=== PATIENT | female | born 1975 | race Caucasian/White ===

== ENCOUNTER 2017-10-01 13:01 | Outpatient (RCR) | payer OTHER, SELFPAY | END 2017-10-08 23:59 | LOC: NS 13:01 | PROVIDERS: Family Provider Family Medicine; PCP Family Medicine; Visit Provider Family Medicine | DX: E66.9 Obesity, unspecified (principal); Z68.32 Body mass index [BMI] 32.0-32.9, adult; Z71.3 Dietary counseling and surveillance | CPT/HCPCS: 97802 ==

== ENCOUNTER 2017-11-06 13:00 | Outpatient (RCR) | payer OTHER, SELFPAY | END 2017-11-08 23:59 | LOC: NS 13:00 | PROVIDERS: Family Provider Family Medicine; PCP Family Medicine; Visit Provider Family Medicine | DX: E66.9 Obesity, unspecified (principal); Z68.32 Body mass index [BMI] 32.0-32.9, adult; Z71.3 Dietary counseling and surveillance | CPT/HCPCS: 97803 ==

== ENCOUNTER 2017-11-27 14:59 | Outpatient (RCR) | payer OTHER, SELFPAY | END 2017-12-08 23:59 | LOC: NS 14:59 | PROVIDERS: Family Provider Family Medicine; PCP Family Medicine; Visit Provider Family Medicine | DX: E66.9 Obesity, unspecified (principal); Z68.32 Body mass index [BMI] 32.0-32.9, adult; Z71.3 Dietary counseling and surveillance | CPT/HCPCS: 97803 ==

== ENCOUNTER 2017-12-17 17:18 | Outpatient (RCR) | payer OTHER, SELFPAY | END 2018-01-08 23:59 | LOC: NS 17:18 | PROVIDERS: Family Provider Family Medicine; PCP Family Medicine; Visit Provider Family Medicine | DX: E66.9 Obesity, unspecified (principal); Z68.32 Body mass index [BMI] 32.0-32.9, adult; Z71.3 Dietary counseling and surveillance | CPT/HCPCS: 97803 ==

== ENCOUNTER 2018-02-18 08:36 | Outpatient (RCR) | payer OTHER, SELFPAY | END 2018-03-10 23:59 | LOC: NS 08:36 | PROVIDERS: Family Provider Family Medicine; PCP Family Medicine; Visit Provider Family Medicine | DX: E66.9 Obesity, unspecified (principal); Z68.32 Body mass index [BMI] 32.0-32.9, adult; Z71.3 Dietary counseling and surveillance | CPT/HCPCS: 97803 ==

== ENCOUNTER 2018-03-11 09:13 | Outpatient (RCR) | payer OTHER, SELFPAY | END 2018-04-10 23:59 | LOC: NS 09:13 | PROVIDERS: Family Provider Family Medicine; PCP Family Medicine; Referring Provider Family Medicine; Visit Provider Family Medicine | DX: E66.9 Obesity, unspecified (principal); Z68.32 Body mass index [BMI] 32.0-32.9, adult; Z71.3 Dietary counseling and surveillance | CPT/HCPCS: 97803 ==

== ENCOUNTER → 2018-05-16 08:22 | Outpatient (CLI) | payer OTHER, SELFPAY ==
[2018-05-16 10:22] LABS: Absolute Lymphocyte Count 1.81 X10^3/ul (0.83-4.51); Absolute Neutrophil Count 4.3 X10^3/uL (2.0-7.7); Basophil# 0.04 X10^3/uL; Basophil% 0.6 % (0-1); Eosinophil# 0.04 X10^3/uL; Eosinophils% 0.6 % (0-5); Hematocrit 41.4 % (37-47); Lymphocyte # 1.81 X10^3/ul (4.0); Lymphocyte % 27.2 % (19-41); Mean Corp Hgb Conc 31.4 g/gl (32-36); Mean Corpuscular Hgb 27.4 pg (27.0-32.0); Mean Corpuscular Volume 87.3 fL (81-99); Mean Platelet Vol. 10.2 fl (6.2-12.0); Monocyte# 0.49 X10^3/uL; Monocyte% 7.4 % (0-10); Neutrophil # 4.26 X10^3/uL (2.7-7.7); Platelet Count 265 K/mm3 (150-450); RBC Distribution Width CV 14.5 % (11.6-14.6); RBC Distribution Width SD 46.3 fl (35.1-43.9); Red Blood Count 4.74 M/mm3 (4.2-5.4); White Blood Count 6.7 K/mm3 (4.4-11.0)
[2018-05-16 10:23] LABS: POSITIVE COUNT NO; POSITIVE DIFFERENTIAL NO; POSITIVE MORPHOLOGY NO
[2018-05-16 10:39] LABS: Cholesterol 270 mg/dL (200); Glucose 86 mg/dL (74-106); High Density Lipoprotein 64 mg/dL; Triglycerides 174 mg/dL; Very Low Density Lipoprotein 35 mg/dL (5-40)
== END ==
PROVIDERS: Family Provider Family Medicine; PCP Family Medicine; Referring Provider Family Medicine; Visit Provider Family Medicine
DX: Z00.00 Encounter for general adult medical examination without abnormal findings (principal); E55.9 Vitamin D deficiency, unspecified
CPT/HCPCS: 36415; 80061; 82306; 82947; 85025

== ENCOUNTER 2018-07-01 12:30 | Outpatient (RCR) | payer OTHER, SELFPAY | END 2018-07-01 23:59 | disposition home or self-care (01) | LOC: NS 12:30 | PROVIDERS: Family Provider Family Medicine; PCP Family Medicine; Referring Provider Family Medicine; Visit Provider Family Medicine | DX: E66.9 Obesity, unspecified (principal); Z68.32 Body mass index [BMI] 32.0-32.9, adult; Z71.3 Dietary counseling and surveillance | CPT/HCPCS: 97803 ==

== ENCOUNTER → 2018-10-14 | Outpatient (CLI) | payer OTHER, SELFPAY ==
[2018-07-28 11:32] VITALS: BMI 32.2
== END | disposition home or self-care (01) ==
PROVIDERS: Family Provider Family Medicine; PCP Family Medicine; Referring Provider Nurse Practitioner Family; Visit Provider Nurse Practitioner Family
DX: R35.0 Frequency of micturition (principal)
CPT/HCPCS: 87086; 87088; 87186

== ENCOUNTER → 2019-05-25 10:41 | Outpatient (CLI) | payer OTHER, SELFPAY ==
[2019-05-25 12:00] VITALS: BMI 32.2
[2019-05-26 11:49] LABS: Mucous, Urine 0 SEEN /hpf (<or=2+); Red Blood Cells-Urine 0 SEEN /hpf (0-5); White Blood Cells 0 SEEN /hpf (0-5)
[2019-05-26 12:00] LABS: Color, Urine Yellow (Yellow); Glucose, Dipstick Normal (Normal); Ketone-Dipstick Negative (Negative); Leukocyte Esterase-Dipstick Negative /ul (Negative); Nitrite-Dipstick Negative (Negative); Occult Blood-Urine Negative /ul (Negative); Protein-Dipstick Negative (Negative); Specific Gravity, Urine 1.015 (1.002-1.030); Urine Bilirubin Dipstick Negative (Negative); Urine Clarity Clear (Clear); Urine Urobilinogen Normal (Normal)
[2019-05-26 12:15] LABS: Bacteria 1+ /hpf (None Seen); Squamous Epithelial Cells - UA 0-5 SEEN /hpf (5-10)
== END ==
PROVIDERS: Family Provider Family Medicine; PCP Family Medicine; Referring Provider Physician Assistant Medical; Visit Provider Physician Assistant Medical
DX: N30.01 Acute cystitis with hematuria (principal)
CPT/HCPCS: 81001; 87086; 87088; 87186

== ENCOUNTER → 2019-06-24 08:21 | Outpatient (CLI) | payer OTHER, SELFPAY ==
[2019-05-25 12:00] VITALS: BMI 32.2
[2019-06-24 15:57] LABS: ALB/GLOB Ratio 0.9 RATIO (0.9-2.4); AST(SGOT) 9 U/L (15-37); Alanine Aminotransfer ALT/SGPT 22 U/L (13-56); Albumin, Serum 3.6 g/dL (3.2-5.0); Alkaline Phosphatase 45 U/L (45-117); Anion Gap 5 (5-15); BUN 17 mg/dL (7-18); BUN/Creat Ratio 16.5 RATIO (10-20); Calcium,Total 8.8 mg/dL (8.5-10.1); Chloride 107 mmol/L (98-107); Cholesterol 292 mg/dL (200); Creatinine, Serum 1.03 mg/dL (0.55-1.02); EST Glomerular Filtration Rate 61 mL/min (>60); Est Glom Filt Rate - Afr Amer 74 mL/min (>60); Globulin 3.9 g/dL (2.2-4.2); Glucose 89 mg/dL (74-106); High Density Lipoprotein 64 mg/dL; Potassium 4.5 mmol/L (3.5-5.1); Protein, Total 7.5 g/dL (6.4-8.2); Sodium Level 137 mmol/L (136-145); Thyroid Stim Hormone (TSH) 2.44 uIU/mL (0.358-3.74); Triglycerides 187 mg/dL; Very Low Density Lipoprotein 37 mg/dL (5-40)
[2019-06-24 16:02] LABS: Vitamin D,25 Hydroxy 22.9 ng/mL (29.95-100.01)
== END ==
PROVIDERS: Family Provider Family Medicine; PCP Family Medicine; Referring Provider Family Medicine; Visit Provider Family Medicine
DX: Z00.00 Encounter for general adult medical examination without abnormal findings (principal); E78.00 Pure hypercholesterolemia, unspecified
CPT/HCPCS: 36415; 80053; 80061; 82306; 84443

== ENCOUNTER 2019-08-08 07:54 | Day surgery (SDC) | payer OTHER, SELFPAY ==
[2019-07-10 10:21] VITALS: BMI 32.2
--- NOTE | 2019-07-10 10:49 | HP_ITS ---
Intake Vital Signs 07/10/19 Height 5 ft 5.25 in 07/10/19 Weight: 195 lb 3 oz 07/10/19 BMI 32.2 07/10/19 BP 158/97 H 07/10/19 Blood Pressure Location Rt brachial 07/10/19 Position Sitting 07/10/19 Respiration 18 07/10/19 Pulse 79 07/10/19 Pulse Oximetry (%) 100 Intake Visit Reasons: Hemorrhoids Chief Complaint: rectal pain/ abd pain Slot Shift Supervisor Required: No Is patient in pain?: No Allergies No Known Allergies Allergy (Verified 07/10/19 10:20) Medications acetaminophen 500 mg tablet 500 mg PO Q6H PRN 07/28/18 [History Confirmed 07/10/19] cholecalciferol (vitamin D3) 1,250 mcg (50,000 unit) capsule 1,250 mcg PO DAILY 07/10/19 [History Confirmed 07/10/19] fluticasone propionate 50 mcg/actuation nasal spray,suspension 1 spray INTRANASAL DAILY PRN 07/10/19 [History Confirmed 07/10/19] lactobacillus combination no.8 3 billion cell capsule 3,000 mmu cells PO DAILY 07/10/19 [History Confirmed 07/10/19] psyllium husk 0.4 gram capsule 0.4 g PO DAILY 07/10/19 [History Confirmed 07/10/19] Is last menstrual period known: No Post menopausal: No Patient : No PFSH Medical History (Updated 07/10/19 @ 10:46 by Winston Howe MD) Gastroesophageal reflux disease (Acute) Thrombosed external hemorrhoid (Acute) Change in bowel habit (Acute) GERD (gastroesophageal reflux disease) (Acute) Hemorrhoids (Acute) History of DVT (deep vein thrombosis) (Acute) Surgical History (Updated 07/10/19 @ 10:19 by Gaby Peguero) History of delivery (Acute) History of facial surgery (Acute) History of hernia repair (Acute) History of hernia repair (Acute) Personal history of prior ablation treatment (Acute) Family History (Updated 07/10/19 @ 10:19 by Gaby Peguero) Father Cancer multiple myeloma Mother Cancer sarcoma Social History (Updated 07/10/19 @ 10:49 by Winston Howe MD) Smoking Status: Never smoker alcohol intake: current HPI HPI HPI: JENNIFER FINE, is a 44 F who presents to the office today for HPI HPI Surgical H&P: Yes HPI: JENNIFER FINE, is a 44 F who presents to the office today for discussion regarding sudden acceleration of reflux symptoms and some nonspecific left mid lower quadrant abdominal pain and change of bowel habits with progressive constipation and anal pain possible recurrent thrombosed hemorrhoids. The patient states that I have assisted her with incising and draining thrombosed external hemorrhoids 3 previous times and she has had another one drained by AMOS Lee. Recently she has had a had extreme amount of stress in her life. She lost her mother. She has had 2 previous urinary tract infections over the past 1 year. She states that she is usually asymptomatic except for some back pain. She does not think that her left mid abdominal pain is that. She states that couple months back she ate some berries and had some left mid abdominal pain. She was instructed by family members that that might be diverticulitis. ROS General General: No weight change, appetite, fatigue, colon cancer, breast cancer or weakness HEENT HEENT: No difficulty swallowing, eye injury, eye surgery, swollen glands or hoarseness Endo Endocrine: No thyroid disease, diabetes mellitus, thyroid cancer, Hair loss, heat intolerance or cold intolerance Cardio Cardiovascular: No murmur, pacemaker, heart disease, atrial fibrillation, high blood pressure, heart attack, heart stent, palpitations, shortness of breat with exertion or chest pain Resp Respiratory: No shortness of breath, No sleep apnea, No cough, No COPD, No asthma, No emphysema, No wheezing Gastro Gastrointestinal: No abdominal pain, No nausea or vomiting, No diarrhea, Yes constipation, No blood in stool, Yes acid reflux, Yes hemorrhoids, No ulcers, No gallbladder problem, No black,tarry stools Joe Hematologic: No blood thinners, No blood disorders, No bleeding, No anemia, Yes blood clots Additional Details: DVT during Neuro Neurologic: No weakness Exam Const General: cooperative, comfortable, no acute distress Nutritional Appearance: obese Orientation: alert, awake [facility] Head: normal to inspection Chest Chest palpation & inspection: normal inspection of the chest Resp Effort & Inspection: normal respiratory effort Auscultation: clear to auscultation bilaterally Cardio Rate: regular rate Rhythm: regular rhythm Heart Sounds: no murmurs GI Palpation: soft, no hepatosplenomegaly Auscultation: normal bowel sounds Other: Mild tenderness to palpation left mid abdomen without mass. No rebound or guarding. Perianal exam suggested an anterior anal hemorrhoidal tag. Very small thrombosed external hemorrhoid on the left. Skin General: no rashes or lesions noted Neuro Cognition: normal cognition Extrem General: no calf tenderness bilaterally Psych Affect: normal affect Assessment & Plan Problems 1. Change in bowel habit R19.4 2. Thrombosed external hemorrhoid K64.5 3. Gastroesophageal reflux disease, esophagitis presence not specified K21.9 Plan 44-year-old female. Recent says she has had an excessive amount of stress in her life after losing her mother. She has had acutely escalated GERD symptoms. She has had an acute change of bowel habits with progressive constipation. She has perianal pain and a very small thrombosed external hemorrhoid on the left not sure that this completely correlates with her concerns as she states that the discomfort is more internally. There is a family history of polyps in her mother. She was getting colonoscopies every 5 years. There is no family history of colon cancer. Finally the patient has had new onset of left mid abdominal pain of undetermined etiology. With a combination of this presentation I am recommending a esophagogastroduodenoscopy with possible biopsy and colonoscopy with possible biopsy or polypectomy as indicated. She is aware of the technique, benefit, risk of alternatives. She will be on vacation in the near future. We will schedule and expedite on her return. In the interim we have strongly advised taking a daily fiber supplementation and increasing her fluid intake. On the examination I will be inspecting for etiology to increase reflux possible H. pylori. We will carefully looking at the perianal exam for internal hemorrhoidal disease or fissure. We will be evaluating for source of left mid abdominal pain. Biopsies will be taken if indicated. She has had an opportunity to ask and have questions answered. We will schedule and proceed at her discretion. Cc: Dr Pancho Howe M.D., F.A.C.S. Coding Level of Care Code Off vis,new,level 3 Diagnoses Change in bowel habit R19.4 Thrombosed external hemorrhoid K64.5 Gastroesophageal reflux disease, esophagitis presence not specified K21.9 ??Esophagitis presence: esophagitis presence not specified 07/10/19 1049 <Electronically signed by Winston larios MD> Date _ Winston Howe MD I have re-examined the patient. There are no clinical changes since date of exam.
[2019-08-04 17:34] VITALS: BMI 32.2
[2019-08-08 08:18] VITALS: BP 135/82; PULSE 74; RESP 15; TEMP 36.5; O2SAT 96; BMI 33.7
[2019-08-08 08:19] LABS: Internal QC Validated? YES +Cl - CLEAR BKGD; Pregnancy, Urine Negative Negative
[2019-08-08] MEDS: Lactated Ringers 1,000 ML 100 ML IV (08:26)
--- NOTE | 2019-08-08 09:00 | IMM_PTH ---
PATIENT: JENNIFER FINE LOC: EN U#:[id number] AGE/SX: 44/F ROOM: RE08/08/[address]: Dr. Winston Howe MD : 1975 BED: DIS: 08/08/2019 SPEC #: [id number] RECD: 08/08/19 12:55 STATUS: LIZBETH CINDI #: [id number] SHANNON: 08/08/19 09:[address]: Winston Howe DEPT: IMMUNOHISTOCHEMISTRY RECD BY: Coleen Mcintosh ENTERED: 08/08/19 12:55 SP TYPE: IMMUNO OTHR DR: Dr. Pancho Grover MD Tissues: B - Stomach, NOS Procedures: H Pylori (initial) PHYSICIAN & INSTITUTION [place] [address] SPECIMEN INFORMATION: Tissue Source: B - Antrum biopsy Clinical Info: GERD, thrombosed external hemorrhoid, change in bowel habit Specimen Number: [id number] CPT code: 39773 METHODOLOGY: Deparaffinized sections of prefer/formalin-fixed tissue or PAP/DQ stained slides are incubated with monoclonal/polyclonal antibodies/oligonucleotide probes. Localization is made via biotin free immunoperoxidase method. Appropriate controls are performed and reacted as expected. Results on target cell population are indicated in the following table: RESULTS: ANTIBODY / CLONE RESULT Block B H Pylori (polyclonal) negative These tests were developed and their performance characteristics determined by [facility]. They may not have been cleared or approved by the U.S. Food and Drug Administration. The FDA has determined that such clearance or approval is not necessary. INTERPRETATION: B. Antrum biopsy: Negative for Helicobacter pylori organisms. SJ:mariano 08/11/19
--- NOTE | 2019-08-08 09:00 | EGD_PTH ---
PATIENT: JENNIFER FINE LOC: EN U#:[id number] AGE/SX: 44/F ROOM: RE08/08/[address]: Dr. Winston Howe MD : 1975 BED: DIS: 08/08/2019 SPEC #: [id number] RECD: 08/08/19 11:49 STATUS: LIZBETH KHOURYYefri #: [id number] SHANNON: 08/08/19 09:[address]: Winston Howe DEPT: SURGICAL PATHOLOGY RECD BY: Fritz Hill ENTERED: 08/08/19 12:19 SP TYPE: EGD BIOPSY OTHR DR: Dr. Pancho Grover MD Tissues: A - Duodenum, NOS B - Gastric mucous membrane C - Esophagus, NOS D - Esophagus, NOS E - COLON BIOPSY F - Descending colon Procedures: Special Stain Group II Surgery Specimen Level IV Alcian Blue/PAS (control) HEADER OPERATION: [place] [place] DIAGNOSIS: GERD, thrombosed external hemorrhoid, change in bowel habit TISSUE SUBMITTED: A - Duodenum biopsy, B - Antrum biopsy for H. pylori and path, C - Distal esophagus biopsy, D - Mid esophagus biopsy, E - Random colon biopsies, F - Biopsy of descending colon polyp MICROSCOPIC DIAGNOSIS A. Duodenum, biopsy: A fragment of small intestinal mucosa, no pathologic diagnosis. B. Antrum, biopsy: Mild gastritis. See microscopic description and comment. C. Distal esophagus, biopsy: A fragment of gastroesophageal mucosa with mild chronic inflammation. Intestinal metaplasia (goblet cell metaplasia) is not identified. See comment. D. Mid esophagus, biopsy: A fragment of squamous epithelium, no pathologic diagnosis. E. Colon, random biopsy: Fragments of colonic mucosa, no pathologic diagnosis. F. Descending colon polyp, biopsy: Hyperplastic polyp. SJ:mariano 08/11/19 COMMENT B. The results of immunohistochemistry for Helicobacter pylori will be reported separately ([id number]). MICROSCOPIC DESCRIPTION Slides are reviewed. B. The specimen shows fragments of gastric mucosa with chronic inflammatory cell infiltrates in the lamina propria consisting of lymphocytes and plasma cells, consistent with mild chronic gastritis. C. Alcian blue/PAS stain with matched control is used in the evaluation of the specimen. The specimen predominantly consists of squamous epithelium. GROSS DESCRIPTION A - Received in fixative is one container labeled with the patient's name and designated duodenal biopsy. The specimen consists of one irregular fragment of light thomas soft tissue that measures 0.4 x 0.4 x 0.1 cm. The specimen is totally submitted in one cassette. B - Received in fixative is one container labeled with the patient's name and designated antrum biopsy. The specimen consists of one irregular fragment of light thomas soft tissue that measures 0.3 x 0.3 x 0.1 cm. The specimen is totally submitted in one cassette. C - Received in fixative is one container labeled with the patient's name and designated distal esophagus biopsy. The specimen consists of one minute fragment of light thomas soft tissue that measures 0.2 x 0.1 x <0.1 cm. The specimen is totally submitted in one cassette. D - Received in fixative is one container labeled with the patient's name and designated mid esophagus biopsy. The specimen consists of one irregular fragment of light thomas soft tissue that measures 0.5 x 0.2 x 0.1 cm. The specimen is totally submitted in one cassette. E - Received in fixative is one container labeled with the patient's name and designated random colon biopsy. The specimen consists of multiple irregular fragments of light thomas soft tissue that in aggregate measure 2 x 0.5 x 0.1 cm. The specimen is totally submitted in one cassette. F - Received in fixative is one container labeled with the patient's name and designated descending colon polyp. The specimen consists of one irregular fragment of light thomas soft tissue that measures 0.3 x 0.2 x 0.1 cm. The specimen is totally submitted in one cassette. / SJ:rg 08/08/19 TC:3 CPT: 91411 x6, 25700
[2019-08-08 09:50] VITALS: BP 110/59; BP 135/82; PULSE 82; RESP 16; TEMP 36.7; O2SAT 97
--- NOTE | 2019-08-08 09:52 | OP.EGD_ITS ---
Patient Name: Gio George Procedure Date: 08/08/2019 9:14 AM Date of : 1975 Age: 44 Procedure: Upper GI endoscopy Indications: Heartburn Providers: Winston Howe MD Referring MD: Pancho Grover Medicines: See the Anesthesia note for documentation of the administered medications Complications: No immediate complications. Procedure: Pre-Anesthesia Assessment: - Prior to the procedure, a History and Physical was performed, and patient medications and allergies were reviewed. The patient's tolerance of previous anesthesia was also reviewed. The risks and benefits of the procedure and the sedation options and risks were discussed with the patient. All questions were answered, and informed consent was obtained. Prior Anticoagulants: The patient has taken no previous anticoagulant or antiplatelet agents. ASA Grade Assessment: II - A patient with mild systemic disease. After reviewing the risks and benefits, the patient was deemed in satisfactory condition to undergo the procedure. After obtaining informed consent, the endoscope was passed under direct vision. Throughout the procedure, the patient's blood pressure, pulse, and oxygen saturations were monitored continuously. The gastroscope was introduced through the mouth, and advanced to the second part of duodenum. The upper GI endoscopy was accomplished without difficulty. The patient tolerated the procedure well. Scope In: 9:20:51 AM Scope Out: 9:25:52 AM Total Procedure Duration Time 0 hours 5 minutes 1 second Findings: The Z-line was variable and was found 38 cm from the incisors. Biopsies were taken with a cold forceps for histology. The mid esophagus was normal. Biopsies were taken with a cold forceps for histology. Diffuse mildly erythematous mucosa without bleeding was found in the gastric antrum. Biopsies were taken with a cold forceps for histology. The examined duodenum was normal. Biopsies were taken with a cold forceps for histology. Impression: - Z-line variable, 38 cm from the incisors. Possible mild esophagitis. Biopsied. - Normal mid esophagus. Biopsied. Very small hiatal hernia - Erythematous mucosa in the antrum. Biopsied. - Normal examined duodenum. Biopsied. Recommendation: - Discharge patient to home. - Resume previous diet. - Continue present medications. - Telephone my office for pathology results in 1 week. Clinical findings above quite mild Procedure Code(s): --- Professional --- 72123, Esophagogastroduodenoscopy, flexible, transoral; with biopsy, single or multiple Diagnosis Code(s): --- Professional --- K22.8, Other specified diseases of esophagus K31.89, Other diseases of stomach and duodenum R12, Heartburn CPT copyright 2017 [employer]. All rights reserved. The codes documented in this report are preliminary and upon concrete block plant supervisor review may be revised to meet current compliance requirements. Winston Howe MD 08/08/2019 9:52:04 AM This report has been signed electronically. Number of Addenda: 0 Note Initiated On: 08/08/2019 9:14 AM
--- NOTE | 2019-08-08 09:52 | OP.CCLET_ITS ---
08/08/2019 Pancho Grover [address] [place] [address] Re : Upper GI endoscopy procedure for Gio George Dear Dr. Grover This procedure was performed on Thursday, August 08, 2019. My impressions and recommendations are as follows: Impressions : - Z-line variable, 38 cm from the incisors. Possible mild esophagitis. Biopsied. - Normal mid esophagus. Biopsied. Very small hiatal hernia - Erythematous mucosa in the antrum. Biopsied. - Normal examined duodenum. Biopsied. Recommendations : - Discharge patient to home. - Resume previous diet. - Continue present medications. - Telephone my office for pathology results in 1 week. Clinical findings above quite mild My findings are described in the full procedure note, which is enclosed. If I can be of further assistance, please feel free to contact me at Doctor phone number(s): Work: . Sincerely, Winston Howe MD 08/08/2019 9:52:04 AM This report has been signed electronically.
[2019-08-08 09:55] VITALS: BP 111/79; BP 135/82; PULSE 81; RESP 16; O2SAT 94
--- NOTE | 2019-08-08 09:55 | OP.CCLET_ITS ---
08/08/2019 Pancho Grover [address] [place] [address] Re : Colonoscopy procedure for Gio George Dear Dr. Grover This procedure was performed on Thursday, August 08, 2019. My impressions and recommendations are as follows: Impressions : - One 4 mm polyp in the descending colon, removed with a cold biopsy forceps. Resected and retrieved. - Diverticulosis in the entire examined colon. Biopsied. - Tortuous colon. Recommendations : - Discharge patient to home. - Resume previous diet. - Continue present medications. - Repeat colonoscopy in 5 years for surveillance based on pathology results. - Telephone my office for pathology results in 1 week. My findings are described in the full procedure note, which is enclosed. If I can be of further assistance, please feel free to contact me at Doctor phone number(s): Work: . Sincerely, Winston Howe MD 08/08/2019 9:55:15 AM This report has been signed electronically.
--- NOTE | 2019-08-08 09:55 | OP.COLON_ITS ---
Patient Name: Gio George Procedure Date: 08/08/2019 9:27 AM Date of : 1975 Age: 44 Procedure: Colonoscopy Indications: Family history of colonic polyps in a first-degree relative Providers: Winston Howe MD Referring MD: Pancho Grover Medicines: See the Anesthesia note for documentation of the administered medications Patient Profile: Last Colonoscopy: 5 years ago. Complications: No immediate complications. Procedure: Pre-Anesthesia Assessment: - Prior to the procedure, a History and Physical was performed, and patient medications and allergies were reviewed. The patient's tolerance of previous anesthesia was also reviewed. The risks and benefits of the procedure and the sedation options and risks were discussed with the patient. All questions were answered, and informed consent was obtained. Prior Anticoagulants: The patient has taken no previous anticoagulant or antiplatelet agents. ASA Grade Assessment: II - A patient with mild systemic disease. After reviewing the risks and benefits, the patient was deemed in satisfactory condition to undergo the procedure. After I obtained informed consent, the scope was passed under direct vision. Throughout the procedure, the patient's blood pressure, pulse, and oxygen saturations were monitored continuously. The colonoscope was introduced through the anus and advanced to the cecum, identified by appendiceal orifice and ileocecal valve. The colonoscopy was performed without difficulty. The patient tolerated the procedure well. The quality of the bowel preparation was good. The ileocecal valve and the appendiceal orifice were photographed. Scope In: 9:28:31 AM Scope Withdrawal Time 0 hours 9 minutes 22 seconds Scope Out: 9:46:57 AM Total Procedure Duration Time 0 hours 18 minutes 26 seconds Findings: A 4 mm polyp was found in the descending colon. The polyp was sessile. The polyp was removed with a cold biopsy forceps. Resection and retrieval were complete. Scattered diverticula were found in the entire colon. Biopsies for histology were taken with a cold forceps from the entire colon for evaluation of microscopic colitis. The colon (entire examined portion) was moderately tortuous. Advancing the scope required changing the patient to a supine position and using manual pressure. Impression: - One 4 mm polyp in the descending colon, removed with a cold biopsy forceps. Resected and retrieved. - Diverticulosis in the entire examined colon. Biopsied. - Tortuous colon. Recommendation: - Discharge patient to home. - Resume previous diet. - Continue present medications. - Repeat colonoscopy in 5 years for surveillance based on pathology results. - Telephone my office for pathology results in 1 week. Procedure Code(s): --- Professional --- 80910, Colonoscopy, flexible; with biopsy, single or multiple Diagnosis Code(s): --- Professional --- D12.4, Benign neoplasm of descending colon Z83.71, Family history of colonic polyps K57.30, Diverticulosis of large intestine without perforation or abscess without bleeding Q43.8, Other specified congenital malformations of intestine CPT copyright 2017 [employer]. All rights reserved. The codes documented in this report are preliminary and upon inventory and pricing associate review may be revised to meet current compliance requirements. Winston Howe MD 08/08/2019 9:55:15 AM This report has been signed electronically. Number of Addenda: 0 Note Initiated On: 08/08/2019 9:27 AM
[2019-08-08 10:00] VITALS: BP 116/78; BP 135/82; PULSE 71; RESP 16; O2SAT 95
[2019-08-08 10:05] VITALS: BP 109/80; BP 135/82; PULSE 73; RESP 16; TEMP 36.5; O2SAT 97
[2019-08-08 10:18] VITALS: BP 135/82
== END 2019-08-08 10:30 | disposition home or self-care (01) ==
LOC: EN 07:55 → AC 07:56
PROVIDERS: Anesthesiology; PCP Family Medicine; Referring Provider Family Medicine; Visit Provider Surgery
PROC: 0DJD8ZZ Inspection of Lower Intestinal Tract, Via Natural or Artificial Opening Endoscopic (ICD-10-PCS; CPT 45378; principal; 2019-08-08 08:55)
DX: K29.70 Gastritis, unspecified, without bleeding (principal); K21.0 Gastro-esophageal reflux disease with esophagitis; K63.5 Polyp of colon; K57.30 Diverticulosis of large intestine without perforation or abscess without bleeding; K44.9 Diaphragmatic hernia without obstruction or gangrene; K64.5 Perianal venous thrombosis; Z87.440 Personal history of urinary (tract) infections; E66.9 Obesity, unspecified; Z68.32 Body mass index [BMI] 32.0-32.9, adult; Z86.718 Personal history of other venous thrombosis and embolism
CPT/HCPCS: 43239; 45380; 81025; 88305; 88313; 88342; J7120; J2405

== ENCOUNTER 2019-12-04 11:22 | Day surgery (SDC) | payer OTHER, SELFPAY ==
--- NOTE | 2019-11-28 15:34 | PCM.HP.BLA ---
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 Pt reports still has intermittent spotting however this past month nothing. Pt reports having pain and irregular bleeding. Pt has h/o ablation and declines any hormonal intervention at this time. Pt would like to proceed with Hysteroscopy, D&C, polypectomy with symphion ? PAST MEDICAL HISTORY PAST MEDICAL HISTORY Diagnosis Date ? DVT (deep vein thrombosis) in ? ? hemorrhoid ? PAST SURGICAL HISTORY PAST SURGICAL HISTORY Procedure Laterality Date ? DELIVERY ONLY ? ? ? x 2 ? D&C, DIAG AND/OR THERAPEUTIC ? ? ? INCISE EXTERNAL HEMORRHOID ? 06/22/10 ? Anterior thrombosed hemorrhoid ? INCISE EXTERNAL HEMORRHOID ? 02/28/13 ? Right lateral thrombosed hemorrhoid excision ? NOVASURE ? 2008 ? Ablation-Dr. Dailey ? PAST SURGICAL HISTORY OF ? ? ? umbilical hernia repair ? PAST SURGICAL HISTORY OF ? ? ? femoral hernia repair ? PAST SURGICAL HISTORY OF ? ? ? mole removed from face FAMILY HISTORY FAMILY HISTORY Problem Relation Age of Onset ? Cancer Mother ? ? soft tissue sarcoma - right thigh ? Cancer Father ? ? Multiple Myeloma ? Cancer Maternal Grandmother ? ? uterine ? Heart Maternal Grandfather ? SOCIAL HISTORY Social History ? Tobacco Use ? Smoking status: Never Smoker ? Smokeless tobacco: Never Used Substance Use Topics ? Alcohol use: Yes ? ? Comment: Socially ? Drug use: No CURRENT MEDICATIONS Current Outpatient Medications Medication Sig ? omega-3/dha/epa/dpa/fish oil (OMEGA-3 2100 ORAL) Take by mouth. ? Multivitamin capsule Take 1 capsule by mouth once daily. ? fluticasone propionate (FLONASE NASAL) Use in the nose. ? psyllium seed, with dextrose, (FIBER ORAL) Take by mouth. ? enzymes,digestive (DIGESTIVE ENZYMES ORAL) Take by mouth. ? LACTOBACILLUS ACIDOPHILUS (PROBIOTIC ORAL) Take by mouth. ? LORATADINE (CLARITIN ORAL) Take by mouth as needed. ? CALCIUM CARBONATE/VITAMIN D3 (VITAMIN D-3 ORAL) Take 1 tablet by mouth once daily. ? meloxicam (MOBIC) 15 mg tablet Take 15 mg by mouth once daily. ? No current facility-administered medications for this visit. Allergies As of Date: 11/24/2019 (No Known Allergies) Fully Assessed 11/24/2019 ? REVIEW OF SYSTEMS Abdomen: some intermittent pain and cramping . Expanded ROS: GENERAL: Negative for fever Allergies and current medication updated:Yes ? EXAM: BP 134/86 Ht 5' 3.5 (1.61m) Wt 204 lb (92.5kg) LMP 09/28/2019 BMI 35.57 kg/(m^2). GENERAL: pleasant, female in no apparent distress HEENT: Normocephalic and atraumatic NECK: full range of motion DERMATOLOGY: Normal, without lesions, non-icteric and non-hirsute NEURO: alert and oriented x3,exam grossly non-focal ? ASSESSMENT AND PLAN: Encounter Diagnosis ? ? ICD-10-CM ? 1. Abnormal uterine bleeding (AUB) N93.9 ? 2. Endometrial polyp N84.0 ? 3. History of endometrial ablation Z98.890 ? 4. Pt has been counseled on risks/benefits and alternatives of surgery including but not limited to anesthesia, bleeding, infection, uterine perforation with subsequent injury to pelvic structures including bowel, bladder, ureters and vessels. Pt wishes to proceed with surgery at this time. Pt understands due to h/o ablation may have stenosis and not able to dilate- at that time surgery would no proceed. 5. Declines hormonal trial- if fails d&C, hysteroscopy consider hysterectomy. ? ? ? Kiya Ashton MD ?4:48 PM Office Visit on 11/24/2019 Procedure Criteria Procedure Type: Elective Procedure Essential: No COVID Risk Discussion: The surgeon/proceduralist and patient have discussed in detail the risk of exposure to and/or potential harm posed by the COVID-19 virus with having a surgery/procedure at this time versus the risk of delaying the surgery/procedure. It is not possible to know either the risk of delaying the surgery or procedure or chance of getting an infection with perfect accuracy, but a joint decision was made between the patient and the surgeon/proceduralist to proceed at this time with the scheduled surgery/procedure as indicated on the consent form.
[2019-12-04] VITALS (7 sets, daily range): BP systolic 116–137; BP diastolic 83–91; PULSE 16–85; RESP 16; TEMP 36.3–37.2; O2SAT 94–100; BMI 34.7
[2019-12-04 11:50] LABS: Internal QC Validated? YES +Cl - CLEAR BKGD; Pregnancy, Urine Negative Negative
[2019-12-04] MEDS: Lactated Ringers 1,000 ML 100 ML IV (11:58)
--- NOTE | 2019-12-04 13:05 | ECC_PTH ---
PATIENT: JENNIFER FINE LOC: [facility] [place] U#:[id number] AGE/SX: 44/F ROOM: RE12/04/[address]: Dr. Kiya Ashton, MDDOB: 1975 BED: DIS: 12/04/2019 SPEC #: [id number] RECD: 12/04/19 16:03 STATUS: LIZBETH CINDI #: [id number] SHANNON: 12/04/19 13:[address]: Kiya Ashton DEPT: SURGICAL PATHOLOGY RECD BY: Dell Castro ENTERED: 12/05/19 08:05 SP TYPE: ECC OTHR DR: Dr. Pancho Grover MD Tissues: Endocervical Procedures: Surgery Specimen Level IV HEADER OPERATION: Dilation and endocervical curettings PRE-OP DIAGNOSIS: Abnormal uterine bleeding, endocervical polyp TISSUE SUBMITTED: Endocervical curettings MICROSCOPIC DIAGNOSIS Endocervical curettings: Fragments of benign endocervical epithelium and benign endocervical mucosa with chronic inflammation, squamous metaplasia and mild epithelial atypia, favor reactive. Desquamated benign squamous epithelial cells, blood and mucous. See comment. ARJUN:mariano 12/08/19 COMMENT Clinical correlation and appropriate follow up are necessary. MICROSCOPIC DESCRIPTION Slides are reviewed. GROSS DESCRIPTION Received in fixative is one container labeled with the patient's name and designated endocervical curettings. The specimen consists of multiple fragments of hemorrhagic soft tissue mixed with mucoid tissue that in aggregate measure 5 x 3 x 0.6 cm. The entire specimen is submitted in four cassettes. / ARJUN:mariano 12/05/19 TC:3 CPT: 29488
--- NOTE | 2019-12-04 13:51 | DCINST_ITS ---
Discharge Diet: No Restrictions Discharge Activity: Return to Normal Activity, May Shower, May Take a Tub Bath - in 2 weeks. Call your doctor if you observe: Fever of 101 or Higher, Using more than one pad per hour, Uncontrolled pain Allergies/Adverse Reactions: Allergies No Known Allergies Allergy (Verified 12/04/19 11:39) Medications to take at Discharge acetaminophen 500 mg tablet 500 mg PO Q6H PRN 07/28/18 cholecalciferol (vitamin D3) 1,250 mcg (50,000 unit) capsule 1,250 mcg PO DAILY 07/10/19 fluticasone propionate 50 mcg/actuation nasal spray,suspension 1 spray INTRANASAL DAILY PRN 07/10/19 lactobacillus combination no.8 3 billion cell capsule 3,000 mmu cells PO DAILY 07/10/19 psyllium husk 0.4 gram capsule 0.4 g PO DAILY 07/10/19 Enzymes 1 tab PO PRN PRN 11/27/19 Meloxicam [Mobic] 15 mg PO DAILY 11/27/19 Multivitamin 1 ea PO DAILY 11/27/19 Raleigh-3 Fatty Acids/Fish Oil [[place] 3 1,000 mg Softgel] 1 ea PO DAILY 11/27/19 hydrocortisone See Rx Instructions .ROUTE .MEDSUPPLY #30 supp 12/03/19 Primary Care Physician: Pacnho Grover MD [Primary Care Provider] - Test Results: Test results from this visit will be discussed in further detail at your follow- up appointment, if applicable. Please Follow Up With: Kiya Ashton MD When: as scheduled in 2 weeks
--- NOTE | 2019-12-04 13:52 | PCM.OPRPT ---
Report of Operation Date of Procedure: 12/04/19 Pre-Operative Diagnosis: AUB,endocervical polyp, History of endometrial ablation Post-Operative Diagnosis: same, stenotic cervix Surgery/Procedure Performed:: endocervical curettings. Description of Surgical Findings:: Unable to dilate internal cervical os - endocervical curettage performed. Type of Anesthesia:: MAC Specimen's removed: enodcervical curettings Drains: none Estimated Blood Loss (mL): <5cc Fluids Replaced: 700 Description of Procedure: Informed consent was obtained the patient was taken the operating room she was placed in supine position. She was given anesthesia. She was then placed in the [facility] where she was prepped and draped in the normal sterile fashion. bladder drained- 100cc urine. At this time the weighted speculum was placed in the posterior fornix of vagina. Single-tooth tenaculum was used to gently grasp the anterior lip the cervix. attempted to peform uterine sound- unable- stenotic internal cervical os. At this time endocervical curettage performed as polyp was appreciated in endocervix- some small tissue removed and will send to pathology for review. Procedure was stopped- stenotic cervix due to previous ablation- Anticipated normal postoperative course. Instrument lap count correct ?2. Vaginal Sweep was negative. Grafts/Implants Used: none - Complications none- stenotic cervix- unable to perform hysteroscopy - Admit VTE Documentation VTE Present on Admission: Yes VTE Mechan Device Prophylaxis: SCD's VTE Pharm Prophylaxis ordered?: No
== END 2019-12-04 15:42 | disposition home or self-care (01) ==
LOC: SDC 11:23 → AC 11:24
PROVIDERS: Anesthesiology; PCP Family Medicine; Referring Provider Obstetrics & Gynecology; Visit Provider Obstetrics & Gynecology
PROC: 0UB98ZZ Excision of Uterus, Via Natural or Artificial Opening Endoscopic (ICD-10-PCS; CPT 58558; principal; 2019-12-04 12:50)
DX: N72 Inflammatory disease of cervix uteri (principal); N87.9 Dysplasia of cervix uteri, unspecified; N84.1 Polyp of cervix uteri; N88.2 Stricture and stenosis of cervix uteri; Z11.59 Encounter for screening for other viral diseases; Z86.718 Personal history of other venous thrombosis and embolism
CPT/HCPCS: 00940; 57505; 81025; 87635; 88305; G2023; J7120; J2405; U0003

== ENCOUNTER 2019-12-12 11:52 | Emergency (ER) | payer OTHER, SELFPAY ==
[2019-12-04 11:47] VITALS: BMI 34.7
[2019-12-12 11:53] VITALS: BP 157/84; PULSE 93; RESP 17; TEMP 36.5; O2SAT 97; BMI 34.7
--- NOTE | 2019-12-12 12:05 | VDLE_ITS ---
Reason For Study: Swelling RIGHT LEFT CFV is compressible, spontaneous, phasic, GSV is normal. competent and demonstrates normal CFV is compressible, spontaneous, phasic, augmentation. competent, and demonstrates normal Procedure augmentation. Exam performed portable in ED. FV is compressible, spontaneous, phasic, A preliminary report was called and/or faxed competent and demonstrates normal to ED RN. augmentation. POP V is compressible, spontaneous, phasic, competent and demonstrates normal augmentation. T/P Trunk is compressible. PTV is compressible. LT PerV is compressible. Interpretation Summary There is no evidence of left lower extremity deep vein thrombosis. Left great saphenous vein appears patent and compressible segmentally. Patent and compressible right common femoral vein Ordering Physician: Cindy Juárez Referring Physician: Pancho Grover Performed By: Whitney Lindsay RVT
--- NOTE | 2019-12-12 12:06 | EKG12_ITS ---
Test Reason : SOB Blood Pressure : / mmHG Vent. Rate : 083 BPM Atrial Rate : 083 BPM P-R Int : 122 ms QRS Dur : 100 ms QT Int : 356 ms P-R-T Axes : 069 051 078 degrees QTc Int : 418 ms Normal sinus rhythm Normal ECG Confirmed by DELMY HOLBROOK ([id number]), rewrite editor LUTHER CRAFT ([id number]) on 12/15/2019 2:14:43 PM Referred By: MICHAEL Confirmed By:DELMY HOLBROOK
--- NOTE | 2019-12-12 12:07 | ED.DCSUM_ITS ---
History of Present Illness Chief Complaint: Lower Extremity Injury Detail of Chief Complaint: Left leg pain and swelling Informant: Patient Onset: Days Context: Gradual Onset Current Severity: Mild Maximum Severity: Mild Narrative: Patient presents secondary to left leg pain and swelling. She is a history of DVT while she was . 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 3 days ago she started noticing some swelling to her left leg. Today she had more pain along the lateral left lower leg. No overlying skin changes. No known injury. She denies chest pain but has noted increased shortness of breath for the past 2 days. - Past Medical History (1) GERD (gastroesophageal reflux disease) Status: Chronic (2) History of DVT (deep vein thrombosis) Status: Resolved Past Medical History - Allergies and Home Meds Allergies/Adverse Reactions: Allergies No Known Allergies Allergy (Verified 12/12/19 11:53) Primary Care Physician: Pancho Grover MD [Primary Care Provider] - Prior records reviewed: Yes Lives: Spouse/ Significant Other Smoking Status: Never smoker Review of Systems General: Denies: Chills, Fever Eyes: Denies: Visual changes - bilaterally ENT: Denies: Bilateral ear pain Cardiovascular: Denies: Chest pain Respiratory: Reports: Dyspnea. Denies: Cough Gastrointestinal: Denies: Abdominal pain, Nausea, Vomiting Musculoskeletal: Reports: Swelling, Extremity Pain Skin: Denies: Rash Neurological: Denies: Headache Hematologic: Denies: Easy bruising, Easy bleeding Allergy: Denies: Uticaria Physical Exam Vital Signs/Narrative: Vital Signs Temp Pulse Resp BP Pulse Ox 12/12/19 11:53 97.7 F L 93 17 157/84 H 97 Inital Vital Signs reviewed: Yes General: Well nourished, Well developed Head: Normocephalic ENT: Moist mucous membranes Neck: Supple Cardiovascular: Regular rate, Regular rhythm Respiratory: No distress, CTA bilaterally Abdomen: Soft, Nontender Extremities: - - Minimal edema to the left lower extremity. Mild tenderness along the lateral left lower leg. No palpable cords. Strong distal pulses. Neurological: Alert, Oriented x3, Normal Strength, Normal Sensation Psychological: Normal affect Diagnostic/Tx/Re-eval Impressions Chest X-Ray 12/12/19 12:25 IMPRESSION: Normal x-ray examination of the chest. Electronically Signed: Demarcus Watson MD at 12:58 EDT , Service support , 12/12/19 12:25 Chest 1 View (Portable) [RAD] Stat Laboratory Results 12/12/19 12/12/19 12/12/19 12:15 12:15 12:15 WBC 10.3 RBC 4.65 Hgb 13.1 Hct 41.1 MCV 88.4 MCH 28.2 MCHC 31.9 L RDW Std Deviation 48.6 H RDW Coeff of Emani 15.1 H Plt Count 328 MPV 9.6 Immature Gran % (Auto) 1.200 H Neut % (Auto) 65.4 Lymph % (Auto) 23.1 [place] % (Auto) 9.1 Eos % (Auto) 0.5 Baso % (Auto) 0.7 Absolute Neuts (auto) 6.8 Absolute Lymphs (auto) 2.39 Nucleated RBC % 0 D-Dimer Quant (PE/DVT) 0.32 Sodium 139 Potassium 4.1 Chloride 108 H Carbon Dioxide 27.0 Anion Gap 4 L BUN 19 H Creatinine 0.86 Estim Creat Clear Calc 73.55 Est GFR (MDRD) Af Amer 91 Est GFR (MDRD) Non-Af 75 BUN/Creatinine Ratio 22.1 H Glucose 88 Calcium 8.7 Troponin I < 0.015 - EKG Initial EKG Interpretation: Sinus Rhythm - Sinus 83 with no acute ischemia. - Medical Decision Making Venous ultrasound of the legs reveal no evidence of clot. Blood work is unremarkable. On repeat evaluation patient is resting comfortably. She was advised to continue to use her compression stockings and elevate her legs. She will check her blood pressure once a day and keep track of that as well. She is given return instructions. ED Disposition - Plan for ED Patient: Disposition: Home or Assisted Living Diagnosis: Edema Instructions: ED Peripheral Edema, Unilateral Referrals: Pancho Grover MD [Primary Care Provider] - 1 Week if not improving
--- NOTE | 2019-12-12 12:15 | NURSING ---
NO OLD EKGS
--- NOTE | 2019-12-12 12:25 | RAD_ITS ---
STUDY: X-RAY CHEST REASON FOR EXAM: Female, 44 years old. SOB AND LEFT LOWER LEG EDEMA AND PAIN. HX OF A BLOOD CLOT IN LEG BEFORE PER PATIENT. TECHNIQUE: Single AP portable view of the chest. COMPARISON: None. FINDINGS: There are monitoring devices. The lungs are clear and expanded. There is no demonstrated pleural abnormality. Normal size heart. Normal mediastinum and harris. Normal visualized pulmonary arteries. Normal visualized aortic arch and descending thoracic aorta. Normal visualized thoracic spine. Normal visualized ribs, clavicles, and shoulders. There is no demonstrated abnormality of the visualized soft tissue structures of the upper abdomen. RAD/Chest 1 View (Portable) IMPRESSION: Normal x-ray examination of the chest. Electronically Signed: Demarcus Watson MD at 12:58 EDT , Service support ,
[2019-12-12 12:30] VITALS: BP 140/82; PULSE 84; RESP 18; O2SAT 98
[2019-12-12 12:31] LABS: Absolute Lymphocyte Count 2.39 X10^3/uL (0.83-4.51); Absolute Neutrophil Count 6.8 X10^3/uL (2.0-7.7); Basophil# 0.07 X10^3/uL; Basophil% 0.7 % (0-1); Eosinophil# 0.05 X10^3/uL; Eosinophils% 0.5 % (0-5); Hematocrit 41.1 % (37-47); Hemoglobin 13.1 g/dL (12.0-15.0); Lymphocyte # 2.39 X10^3/ul (4.0); Lymphocyte % 23.1 % (19-41); Mean Corp Hgb Conc 31.9 g/dL (32-36); Mean Corpuscular Hgb 28.2 pg (27.0-32.0); Mean Corpuscular Volume 88.4 fL (81-99); Mean Platelet Vol. 9.6 fl (6.2-12.0); Monocyte# 0.94 X10^3/uL; Monocyte% 9.1 % (0-10); NRBC Flagged by Analyzer 0 % (0-5); Neutrophil # 6.77 X10^3/uL (2.7-7.7); Neutrophil % 65.4 % (47-70); Platelet Count 328 K/mm3 (150-450); RBC Distribution Width CV 15.1 % (11.6-14.6); RBC Distribution Width SD 48.6 fl (35.1-43.9); Red Blood Count 4.65 M/mm3 (4.2-5.4); White Blood Count 10.3 K/mm3 (4.4-11.0)
[2019-12-12 12:36] LABS: D-Dimer Quantitative (DVT/PE) 0.32 FEU/ug/m (0.27-0.49)
[2019-12-12 12:44] LABS: Anion Gap 4 (5-15); BUN 19 mg/dL (7-18); BUN/Creat Ratio 22.1 RATIO (10-20); Calcium,Total 8.7 mg/dL (8.5-10.1); Chloride 108 mmol/L (98-107); Creatinine, Serum 0.86 mg/dL (0.55-1.02); EST Glomerular Filtration Rate 75 mL/min (>60); Est Glom Filt Rate - Afr Amer 91 mL/min (>60); Estimated Creatinine Clearance 73.55 ml/min; Glucose 88 mg/dL (74-106); Potassium 4.1 mmol/L (3.5-5.1); Sodium Level 139 mmol/L (136-145)
[2019-12-12 14:23] VITALS: BP 147/99; PULSE 71; RESP 17; O2SAT 97
== END 2019-12-12 14:26 | disposition home or self-care (01) ==
PROVIDERS: Emergency Provider Emergency Medicine; PCP Family Medicine
DX: R60.0 Localized edema (principal); K21.9 Gastro-esophageal reflux disease without esophagitis; Z86.718 Personal history of other venous thrombosis and embolism; Z79.899 Other long term (current) drug therapy
CPT/HCPCS: 71045; 80048; 84484; 85025; 85379; 93005; 93971; 99284

== ENCOUNTER 2019-12-15 13:00 | Outpatient (RCR) | payer OTHER, SELFPAY ==
--- NOTE | 2019-11-12 16:18 | HP.PTEVAL ---
Patient's Visit Information JENNIFER FINE is a 44 year old F referred to Physical Therapy by Conor Boss PA-C with a diagnosis of IMPINGEMENT SYDROME OF LEFT SHOULDER,PAIN IN LEFT SHOULDER. Date of Evaluation: 11/12/19 Physical Therapist: Sudhri Anand, PT, Cert MDT, OCS - Visit Plan Frequency: 2x /Week Duration: 4 Weeks Plan: PT INTERVENTIONS RTC/SCAPULAR STRENGTHENING,POSTURAL EX'S,MANAUL THERAPY G-H MOBS/ROM,MODLATIES FOR PAIN - Subjective Patient 44 y/o female presents to physical therapy with impingement left shoulder and left shoulder pain. Patient has left shoulder pain pain years fell pain became worse lifting OH. Symptoms worse at night . Seen Dr Boss did MRI showed tendonesis ,adhesive capsulitis ,calcified. Patient has had parathesia right at night. Seen did injection and meloxicam. Patient located lateral deltoid decribed as ache. Symptoms worse with activities OH ,lifting,affecting ADLS' Symptoms affects yardwork and housework tasks. Symptoms affects sleeping. SOCIAL: . VOCATION:[employer] (formerly [employer]) - Pain Left Shoulder Pain Intensity (Out of 10): 1 Pain Intensity Range: 10 - Objective POSTURE: mild foward posture,rounded shoulders. NEURO: c/o occasional parathesia /tingling left. PALAPTION: unremarkable. AROM: shoulder flexion 140 degrees ,150 abd ,ER 90 pain at endrange increase wih OP,IR T6. MMT: RTC 4/5 ,deltoid 3+/5,scapular strength 3+/5. CAPSULAR : MILD TIGHT - Special Tests C/S Radiculapathy - Left Upper limb tension test: Negative C/S Radiculapathy - Right Upper limb tension test: Negative C/S Radiculapathy - Left Spurlings: Negative C/S Radiculapathy - Right Spurlings: Negative L Shoulder External Rotation Lag Test - RC Tear: Negative L Shoulder Supine Impingement Test - RC Tear: Negative L Shoulder Lift Off Test - Subscapular Tear: Negative L Shoulder Drop Sign - IS Test: Negative L Shoulder Empty Can - SS: Positive L Shoulder Neer - Impingement: Positive L Shoulder Atkins Otoniel - Impingement: Positive - Goals Goal 1:: Independant with HEP. Goal Time Frame: 4-6 Weeks Goal 2:: Improve posture for ADLS'. Goal Time Frame: 4-6 Weeks Goal 3:: Patient decrease pain by 50% or > to improve ADL's and OH activites . Goal Time Frame: 4-6 Weeks Goal 4:: Patient improve AROM shoulder symmtrical R = L to improve ADL's and OH activities. Goal Time Frame: 4-6 Weeks Goal 5:: Patient improve quick dash score by 5 points or > to improve QOL. - Rehabilitation Potential Physical Therapy Diagnosis: Patient has impingement of left shoulder with tendonsesis ,mild capsular restriction ith MRI showing calcification of tendons with pain with ROM,weakness affecting OH activities and ADLS' thus benifit from skilled PT Rehabilitation Potential: Good - Anticipated Interventions Patient/Client Instruction: Educate patient on: Condition, Plan of Care For the Purpose of:: To decrease pain, To increase ROM, To improve muscle performance and motor function, To improve ability to perform ADL's, To increase tolerance to activity/condition/position, To improve ability of physical actions for home/community/work/leisure, To improve health of tissue, To decrease soft tissue restriction, To increase flexibility/ROM, To reduce risk of recurrence, To improve ability to perform tasks related to life management Therapeutic Exercise to Include: Strength training, Postural training, Flexibilty training, Active ROM, Scapular Strength/Stabilization Comment: RTC For the Purpose of:: To decrease pain, To increase ROM, To improve muscle performance and motor function, To improve ability to perform ADL's, To increase tolerance to activity/condition/position, To improve ability of physical actions for home/community/work/leisure, To improve health of tissue, To decrease soft tissue restriction, To increase flexibility/ROM, To improve ability to perform tasks related to life management Manual Therapy Techniques to Include: Mobilization Comment: G-H For the Purpose of:: To decrease pain, To increase ROM, To improve nutrient delivery to tissue, To increase oxygenation perfusion, To improve health of tissue, To decrease soft tissue restriction, To increase flexibility/ROM TENS: Yes IF ES: Yes Cryotherapy (ice pack, ice massage): Yes Thermo therapy (hot pack): Yes Ultrasound (thermal/non thermal): Yes For the Purpose of:: To decrease pain, To decrease swelling/inflammation, To improve nutrient delivery to tissue, To increase oxygenation perfusion, To decrease soft tissue restriction, To increase flexibility/ROM Thank you for the opportunity to evaluate your patient. For Medicare and Medicare HMO plans, please review the plan of care and approve it. It will need to be FAXED BACK to us at [phone] for Medicare purposes. For Medicare only, by signing this I certify the plan of care. Please let me know if there are questions or concerns regarding this plan of care. Physician Signature: Date:
--- NOTE | 2019-12-15 13:57 | HP.PTDCSUM ---
It has been my pleasure to treat JENNIFER FINE referred by Conor Boss PA-C, with the diagnosis of IMPINGEMENT SYDROME OF LEFT SHOULDER,PAIN IN LEFT SHOULDER for a total of 9 visit(s). Discharge Date: 12/15/19 Please see the following information for a summary of their discharge status. Subjective: Doing well no pain Left Shoulder Pain Intensity (Out of 10): 0 % Improvement: 95 Objective/Function: POSTURE: mild foward posture. AROM: shoulder flexion 140 degrees,abd 160 degrees. ER 90 ,IR T 11. MMT: 4/5 Goal 1:: Independant with HEP. Goal Progress: Goal Met Goal 2:: Improve posture for ADLS'. Goal Progress: Goal Met Goal 3:: Patient decrease pain by 50% or > to improve ADL's and OH activites . Goal Progress: Goal Met Goal 4:: Patient improve AROM shoulder symmtrical R = L to improve ADL's and OH activities. Goal Progress: Goal Met Goal 5:: Patient improve quick dash score by 5 points or > to improve QOL. Goal Progress: Goal Met Plan: D/C TO HEP Discharge Comments: hep If there are questions or concerns regarding this patient's physical therapy, please feel free to call me at [phone]. Thank you for the referral of this patient. Sincerely, Sudhir Anand PT, Cert MDT, OCS
== END 2019-12-15 19:00 | disposition home or self-care (01) ==
LOC: PT 13:00
PROVIDERS: PCP Family Medicine; Referring Provider Physician Assistant; Visit Provider Physician Assistant
DX: M75.42 Impingement syndrome of left shoulder (principal)
CPT/HCPCS: 97110; 97162

== ENCOUNTER → 2020-06-10 | Outpatient (CLI) | payer OTHER, SELFPAY ==
[2020-02-25 08:09] VITALS: BMI 34.7
== END | disposition home or self-care (01) ==
LOC: LABSPEC 15:32
PROVIDERS: PCP Family Medicine; Referring Provider Family Medicine; Visit Provider Family Medicine
DX: N39.0 Urinary tract infection, site not specified (principal)
CPT/HCPCS: 87086; 87088; 87186

== ENCOUNTER → 2020-08-24 12:21 | Outpatient (CLI) | payer OTHER, SELFPAY ==
[2020-02-25 08:09] VITALS: BMI 34.7
[2020-08-24 15:31] LABS: Absolute Lymphocyte Count 1.96 X10^3/uL (0.83-4.51); Absolute Neutrophil Count 4.5 X10^3/uL (2.0-7.7); Basophil# 0.04 X10^3/uL; Basophil% 0.6 % (0-1); Eosinophil# 0.02 X10^3/uL; Eosinophils% 0.3 % (0-5); Hematocrit 41.9 % (37-47); Hemoglobin 13.1 g/dL (12.0-15.0); Lymphocyte # 1.96 X10^3/ul (4.0); Mean Corp Hgb Conc 31.3 g/dL (32-36); Mean Corpuscular Hgb 27.6 pg (27.0-32.0); Mean Corpuscular Volume 88.2 fL (81-99); Mean Platelet Vol. 10.2 fl (6.2-12.0); Monocyte# 0.42 X10^3/uL; NRBC Flagged by Analyzer 0 % (0-5); Neutrophil # 4.53 X10^3/uL (2.7-7.7); Neutrophil % 64.8 % (47-70); Platelet Count 324 K/mm3 (150-450); RBC Distribution Width CV 13.5 % (11.6-14.6); RBC Distribution Width SD 43.8 fl (35.1-43.9); Red Blood Count 4.75 M/mm3 (4.2-5.4)
[2020-08-24 15:44] LABS: Erythrocyte Sedimentation Rate 16 mm/hr (0-30)
[2020-08-24 16:06] LABS: ALB/GLOB Ratio 1.1 RATIO (0.9-2.4); AST(SGOT) 11 U/L (15-37); Alanine Aminotransfer ALT/SGPT 23 U/L (13-56); Albumin, Serum 3.7 g/dL (3.2-5.0); Alkaline Phosphatase 49 U/L (45-117); Anion Gap 6 (5-15); BUN 14 mg/dL (7-18); BUN/Creat Ratio 15.2 RATIO (10-20); CRP 3.58 mg/L (0.0-3.0); Calcium,Total 9.3 mg/dL (8.5-10.1); Chloride 104 mmol/L (98-107); Creatinine, Serum 0.92 mg/dL (0.55-1.02); EST Glomerular Filtration Rate 69 mL/min (>60); Est Glom Filt Rate - Afr Amer 84 mL/min (>60); Globulin 3.5 g/dL (2.2-4.2); Glucose 82 mg/dL (74-106); Potassium 4.1 mmol/L (3.5-5.1); Protein, Total 7.2 g/dL (6.4-8.2); Sodium Level 138 mmol/L (136-145); Thyroid Stim Hormone (TSH) 1.68 uIU/mL (0.358-3.74)
[2020-08-26 13:52] LABS: ANTINUCLEAR ANTIBODIES DIRECT Negative (Negative)
== END ==
PROVIDERS: PCP Family Medicine; Visit Provider Registered Nurse
DX: M25.50 Pain in unspecified joint (principal)
CPT/HCPCS: 36415; 80053; 84443; 85025; 85652; 86038; 86140

== ENCOUNTER → 2020-09-07 09:00 | Outpatient (CLI) | payer OTHER, SELFPAY ==
[2020-02-25 08:09] VITALS: BMI 34.7
== END ==
PROVIDERS: PCP Family Medicine; Referring Provider Family Medicine; Visit Provider Family Medicine
DX: U07.1 COVID-19 (principal)
CPT/HCPCS: 36415; 86769

== ENCOUNTER → 2021-04-16 09:51 | Outpatient (CLI) | payer OTHER, SELFPAY ==
[2021-04-16 10:30] LABS: Absolute Lymphocyte Count 1.88 X10^3/uL (0.83-4.51); Absolute Neutrophil Count 3.4 X10^3/uL (2.0-7.7); Basophil# 0.03 X10^3/uL; Basophil% 0.5 % (0-1); Eosinophil# 0.04 X10^3/uL; Eosinophils% 0.7 % (0-5); Hematocrit 40.1 % (37-47); Hemoglobin 12.7 g/dL (12.0-15.0); Lymphocyte # 1.88 X10^3/ul (0.83-4.51); Lymphocyte % 32.4 % (19-41); Mean Corp Hgb Conc 31.7 g/dL (32-36); Mean Corpuscular Hgb 26.5 pg (27.0-32.0); Mean Corpuscular Volume 83.5 fL (81-99); Monocyte# 0.43 X10^3/uL; Monocyte% 7.4 % (0-10); NRBC Flagged by Analyzer 0 % (0-5); Neutrophil # 3.41 X10^3/uL (2.7-7.7); Neutrophil % 58.7 % (47-70); Platelet Count 242 K/mm3 (150-450); RBC Distribution Width CV 14.7 % (11.6-14.6); RBC Distribution Width SD 44.4 fl (35.1-43.9); White Blood Count 5.8 K/mm3 (4.4-11.0)
[2021-04-16 10:48] LABS: ALB/GLOB Ratio 0.8 RATIO (0.9-2.4); AST(SGOT) 9 U/L (15-37); Alanine Aminotransfer ALT/SGPT 19 U/L (13-56); Alkaline Phosphatase 44 U/L (45-117); Anion Gap 5 (5-15); BUN 14 mg/dL (7-18); BUN/Creat Ratio 15.6 RATIO (10-20); Calcium,Total 8.6 mg/dL (8.5-10.1); Chloride 108 mmol/L (98-107); Cholesterol 246 mg/dL (200); EST Glomerular Filtration Rate 71 mL/min (>60); Est Glom Filt Rate - Afr Amer 86 mL/min (>60); Globulin 3.9 g/dL (2.2-4.2); Glucose 94 mg/dL (74-106); High Density Lipoprotein 87 mg/dL; Potassium 4.7 mmol/L (3.5-5.1); Protein, Total 6.9 g/dL (6.4-8.2); Sodium Level 139 mmol/L (136-145); Triglycerides 154 mg/dL; Very Low Density Lipoprotein 31 mg/dL (5-40)
== END ==
PROVIDERS: PCP Family Medicine; Referring Provider Family Medicine; Visit Provider Family Medicine
DX: E78.00 Pure hypercholesterolemia, unspecified (principal)
CPT/HCPCS: 36415; 80053; 80061; 85025

== ENCOUNTER 2022-09-21 12:00 | Outpatient (RCR) | payer OTHER, SELFPAY ==
--- NOTE | 2022-08-25 11:20 | HP.PTEVAL ---
Patient's Visit Information JENNIFER FINE is a 47 year old F referred to Physical Therapy by Conor Boss PA-C with a diagnosis of Left Meniscal Repair 08/18/22. Date of Evaluation: 08/25/22 Physical Therapist: Leigh De La Cruz DPT - Visit Plan Frequency: 2x /Week Duration: 4 Weeks Plan: 08/18/22 Knee Scope- focus on ROM, strength and functional mobility. HEP Given IE: TKE, extn stretching, heel slide, SLR - Subjective Left Knee Meniscal Repair per pt report but she is WBAT and has no brace 08/18/22. She hurt her knee last year and [place] the [place] and it swelled up really big and then had an MRI. Went home after surgery- has been taking it easy for the last week. Switched to Tylenol on Sunday. Pain is located on the lateral aspect of the joint- when she walks it feels like its catching and tight. Worst: 4/10 Agg: moving around. Best: 0/10 Eases: rest. They gave her quad sets, ankle pumps. Describes the pain as dull and achy. Sleep: she is sleeping in a bed- side but has been on her back- no pillow. She was fully I and active prior to surgery. 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 PMHx: none Meds: baby Aspirin - Objective Posture: FH, RS can correct but does not maintain. Gait: antalgic- no AD- does not heel/toe pattern due to lack of ROM in the surgical knee. Stairs: Observation: incision healing well no s/s of infection- bandaids covering. ROM: 10-100 degrees. Strength: Core: fair minus, Hip: 4+/5 SLR: does have mild lag due to quad strength, Knee: Flexion: 4/5 Extn: 4/5 Ankle: 5/5. Flex: HS: severe, Gastroc: moderate. SLS: weight shift but unable to SLS - Balance/Special Test Scores Lower Extremity Functional Score: 33 - Goals Goal 1:: Patient will be I with HEP and progression Goal Time Frame: 4-6 Weeks Goal 2:: Patient will ambulate >300 feet with a normalized gait pattern Goal Time Frame: 4-6 Weeks Goal 3:: Patient will demo 0-120 degrees of ROM Goal Time Frame: 4-6 Weeks Goal 4:: Patient will report 80% improvement Goal Time Frame: 4-6 Weeks - Rehabilitation Potential Physical Therapy Diagnosis: Patient presents with hypomobility- she has decreased ROM, LE strength, flex and muscular endurance s/p left knee surgery leading to abnormal gait and increased pain with ADL's. Rehabilitation Potential: Good - Anticipated Interventions Patient/Client Instruction: Educate patient on: Benefits of Fitness Program Therapeutic Exercise to Include: Strength training, Endurance training, Balance training, Coordination, Agility training, Body mechanics, Postural training, Flexibilty training, Gait and locomotor training, Neuromotor development, Passive ROM, Active ROM, Dynamic Lumbar Stabilization, Scapular Strength/Stabilization For the Purpose of:: To improve muscle performance and motor function TENS: Yes Cryotherapy (ice pack, ice massage): Yes Thermo therapy (hot pack): Yes Vasopneumatic device: Yes Thank you for the opportunity to evaluate your patient. For Medicare and Medicare HMO plans, please review the plan of care and approve it. It will need to be FAXED BACK to us at [phone] for Medicare purposes. For Medicare only, by signing this I certify the plan of care. Please let me know if there are questions or concerns regarding this plan of care. Physician Signature: Date:
--- NOTE | 2022-09-21 12:17 | HP.PTREVAL ---
Conor Boss PA-C, It has been my pleasure to treat JENNIFER FINE over the last 9 visits for Left Meniscal Repair 08/18/22. Please see the progress note below for an update on the physical therapy plan of care! Subjective: Patient reports that she is getting better- still the hardest part is up/down the stairs 3-09/18 pain with it. She feels that she is 90% better. She has not attempted to squat down or do any type of yoga or kneel on that knee. She feels comfortable with the exercises to do at home. Objective/Function: Posture: good throughout in both sitting and standing Gait: no deviation noted- good stride length Stairs: asc/desc 8 recip with 1 HR- does have a mild hop with asc and decreased control with descent. Observation: incision healing well no s/s of infection. ROM:0-125 degrees. Strength: Core: fair plus, Hip: 4+/5 Knee: Flexion: 5/5 Extn: 5/5 Ankle: 5/5. Flex: HS: mild, Gastroc: mild. SLS: 15 sec without LOB Plan Plan: 09/21/22: Hold 3 weeks (10/12/22)- pt will perform HEP if she doesn't feel as though she is progressing or feels she needs more PT she can call in and continue 2x a week for an additional 4 weeks- if she does not follow up PT will assume she is doing well and returned to all ADL's without incidence and will be appropriate for d/c. 08/18/22 Knee Scope- focus on ROM, strength and functional mobility Balance/Gait/Functional tests - Balance/Special Test Scores Lower Extremity Functional Score: 66 Goals Goal 1:: Patient will be I with HEP and progression Goal Time Frame: 4-6 Weeks Goal Progress: Goal Met Goal 2:: Patient will ambulate >300 feet with a normalized gait pattern Goal Time Frame: 4-6 Weeks Goal Progress: Goal Met Goal 3:: Patient will demo 0-120 degrees of ROM Goal Time Frame: 4-6 Weeks Goal Progress: Goal Met Goal 4:: Patient will report 80% improvement Goal Time Frame: 4-6 Weeks Goal Progress: Goal Met Anticipated Interventions Patient/Client Instruction: Educate patient on: Benefits of Fitness Program Therapeutic Exercise to Include: Strength training, Endurance training, Balance training, Coordination, Agility training, Body mechanics, Postural training, Flexibilty training, Gait and locomotor training, Neuromotor development, Passive ROM, Active ROM, Dynamic Lumbar Stabilization, Scapular Strength/Stabilization For the Purpose of:: To improve muscle performance and motor function TENS: Yes Cryotherapy (ice pack, ice massage): Yes Thermo therapy (hot pack): Yes Vasopneumatic device: Yes Please do not hesitate to contact me at [phone] by phone or if you have questions or concerns regarding this new plan of care! Sincerely, JAYY MendozaT
--- NOTE | 2022-10-24 09:39 | HP.PT.NRP ---
JENNIFER FINE was seen in my office for initial evaluation on 08/25/22. The following Plan of Care was established for this patient: Initial Frequency: 2x /Week Initial Duration: 4 Weeks Patient/Client Instruction: Educate patient on: Benefits of Fitness Program Therapeutic Exercise to Include: Strength training, Endurance training, Balance training, Coordination, Agility training, Body mechanics, Postural training, Flexibilty training, Gait and locomotor training, Neuromotor development, Passive ROM, Active ROM, Dynamic Lumbar Stabilization, Scapular Strength/Stabilization For the Purpose of:: To improve muscle performance and motor function TENS: Yes Cryotherapy (ice pack, ice massage): Yes Thermo therapy (hot pack): Yes Vasopneumatic device: Yes This patient was last seen in our office . Pertinent comments regarding their Physical therapy will appear below: THIS PT RECIEVED A NOTE TODAY STATING PATIENT CALLED AND CANCELLED FOLLOW UP EDIN'T DUE TO HER KNEE BEING BETTER. WILL D/C HER CHART AT THIS TIME BUT WE WOULD BE HAPPY TO RESUME PT NEEDED. At this point I will be discontinuing this patient from physical therapy. I would be happy to see this patient again in the future if found appropriate by the physician. Thank you! Joan Key, PT, Cert MDT Balance/Gait/Functional tests - Balance/Special Test Scores Lower Extremity Functional Score: 66
== END 2022-09-21 19:00 | disposition home or self-care (01) ==
LOC: PT 12:00
PROVIDERS: PCP Family Medicine; Referring Provider Physician Assistant Surgical; Visit Provider Physician Assistant
DX: S83.242D Other tear of medial meniscus, current injury, left knee, subsequent encounter (principal)
CPT/HCPCS: 97110; 97162; 97164

== ENCOUNTER → 2022-11-01 | Outpatient (CLI) | payer OTHER, SELFPAY ==
[2022-11-01 10:37] LABS: Anion Gap 7 (5-15); BUN 17 mg/dL (7-18); BUN/Creat Ratio 20.5 RATIO (10-20); Chloride 106 mmol/L (98-107); Cholesterol 279 mg/dL (200); Creatinine, Serum 0.83 mg/dL (0.55-1.02); EST Glomerular Filtration Rate 78 mL/min (>60); Est Glom Filt Rate - Afr Amer 94 mL/min (>60); Glucose 107 mg/dL (74-106); High Density Lipoprotein 64 mg/dL; Potassium 4.4 mmol/L (3.5-5.1); Sodium Level 138 mmol/L (136-145); Triglycerides 222 mg/dL; Very Low Density Lipoprotein 44 mg/dL (5-40)
== END | disposition home or self-care (01) ==
LOC: MTLAB 08:03
PROVIDERS: PCP Family Medicine; Referring Provider Nurse Practitioner Family; Visit Provider Nurse Practitioner Family
DX: E78.00 Pure hypercholesterolemia, unspecified (principal); Z13.1 Encounter for screening for diabetes mellitus
CPT/HCPCS: 36415; 80048; 80061

== ENCOUNTER → 2022-11-02 | Outpatient (CLI) | payer OTHER, SELFPAY ==
[2022-11-02 15:07] LABS: Hemoglobin A1c 5.3 % (3.8-5.6)
== END | disposition home or self-care (01) ==
PROVIDERS: PCP Family Medicine; Visit Provider Nurse Practitioner Family
DX: R73.01 Impaired fasting glucose (principal)
CPT/HCPCS: 36415; 83036

== ENCOUNTER 2022-12-05 09:30 | Outpatient (RCR) | payer OTHER, SELFPAY | END 2022-12-08 23:59 | LOC: NS 09:30 | PROVIDERS: PCP Family Medicine; Referring Provider Nurse Practitioner Family; Visit Provider Nurse Practitioner Family | DX: Z71.3 Dietary counseling and surveillance (principal); E66.9 Obesity, unspecified; Z68.35 Body mass index [BMI] 35.0-35.9, adult | CPT/HCPCS: 97802; 97803 ==

== ENCOUNTER 2023-01-08 11:30 | Outpatient (RCR) | payer OTHER, SELFPAY ==
--- NOTE | 2022-12-07 16:55 | HP.PTEVAL_ITS ---
Patient's Visit Information Visit Information Visit Information: JENNIFER FINE is a 47 year old F referred to Physical Therapy by Shreyas Collado MD with a diagnosis of Back pain. Date of Evaluation: 12/07/22 Physical Therapist: Darío Graham Visit Plan Frequency: 2x /Week Duration: 6 Weeks Plan: Continue to work on improving core/back strength, LE flexibility, and lifting mechanics. Use manual therapy and modalities as needed for pain control. Subjective Subjective: Pt. is a 47 y.o. female who has been having back pain since the end of October when she was on vacation with no specific injury that she is aware of. She does note that she struggled with the stairs with her knee bothering her and is not sure if she did something there. She has not had any recent imaging of her lumbar spine. She denies any radicular symptoms in her legs but did have some at the end of October. Pt. denies any bowel or bladder changes or unexplained weight loss. Pt. has difficulty with standing/walking longer than 10 minutes, bending forward, occasionally sleeping, squatting, occasionally ascending/descending stairs, lifting things, pushing/pulling, housework, yard work, and work activity. Pt. works at [employer]. Her goal with physical therapy is to get back to working out and doing Yoga. She had previous physical therapy this past year following left knee meniscectomy surgery. Pt. denies any back pain currently, at worst 9/10 and describes the pain as sharp and shooting. Pt. is currently on Prednisone. Her PMH includes left knee menisectomy, two hernia surgeries, and two C-sections. Her hobbies include being outdoors, hiking, and playing pickleball. Objective Objective: Palpation- No tenderness to palpation Posture- Good posture in standing Lumbar AROM- WNL for all motions and no pain Hip PROM- WNL bilaterally Pelvis and leg length normal in supine Core strength- 4/5 Left LE strength grossly 5/5 for all motions Right LE strength grossly 5/5 for all motions Special tests- Straight leg raise [-], Well's leg raise [-] Gait- Pt. ambulates with no gait deviations. Balance/Special Test Scores Oswestry Low Back Score: 11 Goals Goal 1:: Pt. will be able to walk for at least 30 minutes with no back pain. Goal Time Frame: 4-6 Weeks Goal 2:: Pt. will be able to ascend/descend a flight of stairs with no pain. Goal Time Frame: 4-6 Weeks Goal 3:: Pt. will be able to lift at least 30# with proper body mechanics and no back pain. Goal Time Frame: 4-6 Weeks Goal 4:: Pt. will be able to sleep a full night with no back pain. Goal Time Frame: 4-6 Weeks Goal 5:: Pt. will rate back pain at worst at 3/10 with ADL's. Goal Time Frame: 4-6 Weeks Goal 6:: Pt. will improve Oswestry back index < 15% disability in order to improve ADL's. Goal Time Frame: 4-6 Weeks Rehabilitation Potential Physical Therapy Diagnosis: Decreased core/back strength and pain. Pt. presents at this time with subacute low back pain without radiculopathy. Rehabilitation Potential: Good Anticipated Interventions Patient/Client Instruction: Educate patient on: Condition, Plan of Care and Benefits of Fitness Program For the Purpose of:: To decrease pain, To improve ability to perform ADL's, To improve performance and independence with ADL's, To assume or resume ADL's and To improve tolerance to ADL's Therapeutic Exercise to Include: Strength training, Body mechanics, Postural training, Dynamic Lumbar Stabilization and Lu Exercises Comment: Continue with core/back strengthening, LE flexibility exercises, and lifting mechanics. For the Purpose of:: To decrease pain, To improve ability to perform ADL's, To improve performance and independence with ADL's, To assume or resume ADL's and To improve tolerance to ADL's Manual Therapy Techniques to Include: Mobilization and Soft tissue mobilization For the Purpose of:: To decrease pain, To improve ability to perform ADL's, To improve performance and independence with ADL's, To assume or resume ADL's and To improve tolerance to ADL's TENS: Yes IF ES: Yes Cryotherapy (ice pack, ice massage): Yes Thermo therapy (hot pack): Yes For the Purpose of:: To decrease pain, To improve ability to perform ADL's, To improve performance and independence with ADL's, To assume or resume ADL's and To improve tolerance to ADL's Text: Thank you for the opportunity to evaluate your patient. For Medicare and Medicare HMO plans, please review the plan of care and approve it. It will need to be FAXED BACK to us at [phone] for Medicare purposes. For Medicare only, by signing this I certify the plan of care. Please let me know if there are questions or concerns regarding this plan of care. Physician Signature: Date:
--- NOTE | 2023-05-15 13:53 | HP.PT.NRP ---
Patient Information Patient Information: JENNIFER FINE was seen in my office for initial evaluation on 12/07/22. The following Plan of Care was established for this patient: POC Established Initial Frequency: 2x /Week Initial Duration: 6 Weeks Anticipated Interventions Patient/Client Instruction: Educate patient on: Condition, Plan of Care and Benefits of Fitness Program For the Purpose of:: To decrease pain, To improve ability to perform ADL's, To improve performance and independence with ADL's, To assume or resume ADL's and To improve tolerance to ADL's Therapeutic Exercise to Include: Strength training, Body mechanics, Postural training, Dynamic Lumbar Stabilization and Lu Exercises For the Purpose of:: To decrease pain, To improve ability to perform ADL's, To improve performance and independence with ADL's, To assume or resume ADL's and To improve tolerance to ADL's Manual Therapy Techniques to Include: Mobilization and Soft tissue mobilization For the Purpose of:: To decrease pain, To improve ability to perform ADL's, To improve performance and independence with ADL's, To assume or resume ADL's and To improve tolerance to ADL's TENS: Yes IF ES: Yes Cryotherapy (ice pack, ice massage): Yes Thermo therapy (hot pack): Yes For the Purpose of:: To decrease pain, To improve ability to perform ADL's, To improve performance and independence with ADL's, To assume or resume ADL's and To improve tolerance to ADL's Last Seen Last Seen: This patient was last seen in our office 01/08/23. Pertinent comments regarding their Physical therapy will appear below: Pt seen 10 visits of POC and was 75% better. Therapist recommended continued strength but no further attendance happened. At this point, it has been over 4 months and I will discontinue care due to nonattendance. At this point I will be discontinuing this patient from physical therapy. I would be happy to see this patient again in the future if found appropriate by the physician. Thank you! Beto Fitch, DPT, OCS, CSCS Balance/Gait/Functional tests Balance/Special Test Scores Oswestry Low Back Score: 11
== END 2023-01-08 19:00 | disposition home or self-care (01) ==
LOC: PT 11:30
PROVIDERS: PCP Family Medicine; Referring Provider Family Medicine; Visit Provider Family Medicine
DX: M54.9 Dorsalgia, unspecified (principal)
CPT/HCPCS: 97110; 97140; 97161; 97530

== ENCOUNTER 2023-10-26 15:00 | Outpatient (RCR) | payer SELFPAY | END 2023-10-26 19:00 | disposition home or self-care (01) | LOC: PT 15:00 | PROVIDERS: PCP Family Medicine | DX: M54.9 Dorsalgia, unspecified (principal) ==